=== PATIENT | female | born 1970 | race Caucasian/White ===

== ENCOUNTER → 2020-08-16 | Outpatient (CLI) | payer OTHER ==
[~2020-08-16] MED LIST: CELEXA20 MG PO; LYRICA75 MG PO; MEDROL4 MG PO; NORCO 5-325 TA1 EACH PO; NORCO 7.5-3251 EACH PO; VOLTAREN100 GM TOP; WELLBUTRIN SR150 MG PO
== END ==
LOC: KOH-I 08:00
DX: M54.10 Radiculopathy, site unspecified (principal); M51.36 Other intervertebral disc degeneration, lumbar region; M51.37 Other intervertebral disc degeneration, lumbosacral region
CPT/HCPCS: 72148

== ENCOUNTER 2021-01-30 06:36 | Emergency (ER) | payer OTHER ==
[2021-01-30 09:08] LABS: HEMOGLOBIN 13.8 gm/dl (12.3-15.3); RED BLOOD COUNT 4.52 M/UL (4.00-5.10); WHITE BLOOD COUNT 4.9 K/UL (4.5-11.0)
[2021-01-30 09:30] LABS: BUN/CREATININE RATIO 16 (0-10)
== END 2021-01-30 12:40 | disposition home or self-care (01) ==
LOC: ER1 06:36
PROVIDERS: Physician Assistant
DX: S82.831A Other fracture of upper and lower end of right fibula, initial encounter for closed fracture (principal); W01.0XXA Fall on same level from slipping, tripping and stumbling without subsequent striking against object, initial encounter; Y92.009 Unspecified place in unspecified non-institutional (private) residence as the place of occurrence of the external cause
CPT/HCPCS: 29105; 73030; 73080; 73200; 73502; 73610; 80053; 82550; 82553; 83874; 84484; 85025; 99284